=== PATIENT | male | born 1970 | race Caucasian/White ===

== ENCOUNTER → 2016-10-11 | Outpatient (CLI) | payer OTHER ==
--- NOTE | 2016-10-11 10:29 | XR ---
EXAMINATION TYPE: XR lumbar spine 2 or 3V, 3 VIEWS DATE OF EXAM ORDERED: 10/11/2016 HISTORY: S39.012A lumbar strain. COMPARISON: None. FINDINGS: Vertebral body height and alignment are maintained. There is no spondylolysis or spondylol isthesis. There is disc space loss at L4-5 and L5-S1. There is hypertrophic spondylosis at L3-4, L4-5 and L5-S1. There is mild spondylosis deformans at L2-3 and L4-5. The pedicles are intact. IMPRESSION: 1. NO ACUTE OSSEOUS LESION. 2. DEGENERATIVE CHANGE.
== END | disposition home or self-care (01) ==
LOC: RADXRMAIN 10:05
PROVIDERS: ATTEND Emergency Medicine
DX: M47.816 Spondylosis without myelopathy or radiculopathy, lumbar region (principal)
CPT/HCPCS: 72100

== ENCOUNTER → 2016-12-14 | Outpatient (CLI) | payer OTHER ==
--- NOTE | 2016-12-14 13:12 | XR ---
EXAMINATION TYPE: XR femur RT DATE OF EXAM: 12/14/2016 CLINICAL HISTORY: Pain TECHNIQUE: Two views of the right femur are obtained. COMPARISON: None FINDINGS: There is mild narrowing of the joint spaces. Calcifications in the pelvis may be vascular. Osseous structures are intact. No definite acute fracture. No destructive changes. IMPRESSION: 1. Right hip arthropathy.
== END ==
LOC: RADXRMAIN 12:49
PROVIDERS: ATTEND Emergency Medicine
DX: M16.11 Unilateral primary osteoarthritis, right hip (principal); S70.11XA Contusion of right thigh, initial encounter

== ENCOUNTER 2020-10-01 12:20 | Emergency (ER) | payer OTHER ==
[2020-10-01 12:28] VITALS: RESP 18
--- NOTE | 2020-10-01 13:39 | ED ---
General Adult HPI - General Source: patient, RN notes reviewed, old records reviewed Mode of arrival: ambulatory Limitations: no limitations <William Turner - Last Filed: 10/01/20 13:37> <Bhavesh Wakefield - Last Filed: 10/01/20 16:42> - General Chief complaint: Psychiatric Symptoms Stated complaint: mental health Time Seen by Provider: 10/01/20 13:12 - History of Present Illness Initial comments: 49-year-old male presents for psychiatric evaluation. Patient is presenting with increased depression and suicidal thoughts. Patient denies suicide attempt. He denies any ingestion. No chronic medical conditions. Patient has been admitted for psychiatric evaluation and treatment in the past. (William Turner) - Related Data Allergies Allergy/AdvReac Type Severity Reaction Status Date / Time metformin Allergy Unknown Verified 10/01/20 12:30 Review of Systems ROS Other: All systems not noted in ROS Statement are negative. <William Turner - Last Filed: 10/01/20 13:37> ROS Other: All systems not noted in ROS Statement are negative. <Bhavesh Wakefield - Last Filed: 10/01/20 16:42> ROS Statement: Those systems with pertinent positive or pertinent negative responses have been documented in the HPI. Past Medical History Past Medical History: No Reported History History of Any Multi-Drug Resistant Organisms: None Reported Past Surgical History: Appendectomy Past Psychological History: Bipolar, Depression Smoking Status: Never smoker Past Alcohol Use History: Rare Past Drug Use History: None Reported <William Turner - Last Filed: 10/01/20 13:37> General Exam Limitations: no limitations General appearance: alert, in no apparent distress Head exam: Present: atraumatic, normocephalic Eye exam: Present: normal appearance, PERRL ENT exam: Present: normal exam Neck exam: Present: normal inspection. Absent: tenderness, meningismus Respiratory exam: Present: normal lung sounds bilaterally. Absent: respiratory distress, wheezes Cardiovascular Exam: Present: regular rate, normal rhythm GI/Abdominal exam: Present: soft. Absent: distended, tenderness, guarding Extremities exam: Present: normal inspection, normal capillary refill. Absent: pedal edema Neurological exam: Present: alert, oriented X3 Psychiatric exam: Present: depressed, flat affect, suicidal ideation Skin exam: Present: warm, dry, intact. Absent: cyanosis, diaphoretic <William Turner - Last Filed: 10/01/20 13:37> Course <William Turner - Last Filed: 10/01/20 13:37> Vital Signs 10/01/20 12:23 Pulse Rate 66 Respiratory 18 Rate Blood Pressure 143/90 O2 Sat by Pulse 98 Oximetry - Reevaluation(s) Reevaluation #1: 10/01/20 13:39 Patient medically cleared for EPS evaluation. (William Turner) Medical Decision Making <Bhavesh Wakefield - Last Filed: 10/01/20 16:42> - Medical Decision Making Patient evaluated by EPS. EPS recommended discharge with outpatient therapy. Patient agreeable with plan. (Bhavesh Wakefield) - Lab Data Lab Results 10/01/20 Range/Units 13:35 Urine Opiates Screen Not Detected (NotDetected) Ur Oxycodone Screen Not Detected (NotDetected) Urine Methadone Screen Not Detected (NotDetected) Ur Propoxyphene Screen Not Detected (NotDetected) Ur Barbiturates Screen Not Detected (NotDetected) U Tricyclic Antidepress Not Detected (NotDetected) Ur Phencyclidine Scrn Not Detected (NotDetected) Ur Amphetamines Screen Not Detected (NotDetected) U Methamphetamines Scrn Not Detected (NotDetected) U Benzodiazepines Scrn Not Detected (NotDetected) Urine Cocaine Screen Not Detected (NotDetected) U Marijuana (THC) Screen Not Detected (NotDetected) Disposition <William Turner - Last Filed: 10/01/20 13:37> Is patient prescribed a controlled substance at d/c from ED?: No <Bhavesh Wakefield - Last Filed: 10/01/20 16:42> Clinical Impression: Depression Disposition: HOME SELF-CARE Condition: Good Instructions (If sedation given, give patient instructions): Depression (ED) Referrals: None,Stated [Primary Care Provider] - 1-2 days
[2020-10-01 14:26] LABS: Amphetamine Screen,Urine Not Detected (NotDetected); Barbiturate Screen,Urine Not Detected (NotDetected); Benzodiazepines Screen,Urine Not Detected (NotDetected); Cocaine Screen,Urine Not Detected (NotDetected); Methadone Screen, Urine Not Detected (NotDetected); Opiate Screen,Urine Not Detected (NotDetected); Oxycodone Screen, Urine Not Detected (NotDetected); Phencyclidine Screen,Urine Not Detected (NotDetected); Tricyclic Antidepressant,Urine Not Detected (NotDetected); Urn Cannabinoid Scrn Not Detected (NotDetected)
[2020-10-01 17:58] VITALS: BP 137/84; PULSE 58; TEMP 98.6
== END 2020-10-01 17:10 | disposition home or self-care (01) ==
LOC: EC 12:20
DX: F32.9 Major depressive disorder, single episode, unspecified (principal); Z90.89 Acquired absence of other organs
CPT/HCPCS: 80306; 82075; 99285